=== PATIENT | male | born 1980 | race Caucasian/White ===

== ENCOUNTER 2024-02-04 07:59 | Outpatient (AMB) | payer BC, SELFPAY ==
[2024-02-04 08:04] VITALS: BP 120/82; PULSE 78; O2SAT 99; BMI 27.0
--- NOTE | 2024-02-04 08:04 | MHC.OFFVIS ---
Vital Signs 02/04/24 08:04 Height 5 ft 5 in Weight 162 lb BMI 27.0 BP 120/82 Blood Pressure Location Rt brachial Position Sitting Pulse 78 Pulse Source Pulse Oximeter Pulse Oximetry (%) 99 Intake Visit Reasons: ENP-Persistant headache-CONF Intake Note: Patient presents for bump on head. Allergies No Known Allergies Allergy (Verified 02/04/24 08:06) Medication List - Last Reconciled 02/04/24 by HARPREET Rodriguez No Known Home Meds HPI Comments Details: Right-handed 43-yr-old male presents for new pt evaluation of headache. PMH includes GERD. Pt reports last Jan 2023, he struck the top of his head on a branch when he stood up from a squatting position under a branch. He did not have LOC. He did develop a couple of contusions on the top of his head. He states most of the contusions self-resolved but there is still an area that feels like a lump to him. Initially the area was painful. More recently tmay occasionally have episodes of feeling pressure in the area described as mild just in the background and some brief stabbing pains- not overly bothersome. He had US of the area in Mar 3103/2023- which was normal. Brain MRI w/o, 05/2023 was unremarkable, however pt is concerned that he saw the MRI images after he had the MRI, and believed he saw a convex indentation along the top of his head. He denies vision changes, dizziness, cognitive difficulties. Denies previous head injury. Current acute medication use/interventions: Rarely Tylenol or Ibuprofen Current preventative medication use: None Non-pharmacological interventions: none PFSH Medical History (Updated 02/04/24 @ 21:31 by HARPREET Rodriguez) GERD (gastroesophageal reflux disease) Surgical History (Updated 02/04/24 @ 08:09 by ANA CRISTINA Gutierrez) Hx of appendectomy Family History (Updated 02/04/24 @ 08:12 by ANA CRISTINA Gutierrez) Mother HTN (hypertension) Social History (Updated 02/04/24 @ 08:09 by ANA CRISTINA Gutierrez) Alcohol intake: never Patient Tobacco Use Status: Never used Tobacco Physical Exam Vital Signs: Last Vital Signs Pulse 78 02/04/24 08:04 BP 120/82 02/04/24 08:04 Pulse Ox 99 02/04/24 08:04 BMI result Body Mass Index 27.0 Const Orientation/consciousness: patient oriented x3 Resp Effort & Inspection: normal respiratory effort and able to speak in complete sentences Neuro Other: No palpable scalp tenderness. No palpabable masses General: patient oriented x3 Cranial nerves: Yes CN's II-XII intact bilaterally Cognition (Neuro): normal cognition Gait exam (Neuro): Normal gait present Motor exam (neuro): 5/5 motor strength present throughout Deep tendon reflexes (DTR's): Right triceps reflex intensity grade: 2+, Left triceps reflex intensity grade: 2+, Rt Biceps (C5, C6): 2+, Left biceps reflex intensity grade: 2+, Right brachioradialis reflex intensity grade: 2+, Left brachioradialis reflex intensity grade: 2+, Right patellar reflex intensity grade: 2+ and Left patellar reflex intensity grade: 2+ Coordination: [id number] test normal Pupils: Normal pupillary reactivity/response: bilateral Psych Appearance: grossly normal Mental Status: mental status grossly normal Speech and movement: Normal speech and movement present Affect: normal affect Attitude: cooperative Thought process: Normal thought process present Assessment & Plan Assessment & Plan (1) Headache: Comment: crown of head pressure/stabbing pains w/o other associated s/s- s/p Jan 2023 head strike w/o LOC. Improving. Code(s): R51.9 - Headache, unspecified Category: Medical Plan Reviewed brain MRI report and images w/ pt- no evidence of extracranial growth/mass. Occipital region does appear slightly flattened on MRI and exam. Suspect that pt may be noticing his baseline cranium contour since the Jan 2023 head strike. Neuro exam is WNL. Offered head CT to better assess the calvarium. Pt states he will consider. Headache has improved- may use OTC Tylenol or Ibuprofen prn. f/u in 6 months or sooner prn. Coding Level of Care Code New Pt Level 4 (36713) Diagnoses Headache R51.9
== END 2024-02-04 09:15 | disposition home or self-care (01) ==
PROVIDERS: PCP Internal Medicine; Visit Provider Nurse Practitioner Family
DX: R51.9 Headache, unspecified (principal)
CPT/HCPCS: 99204

== ENCOUNTER → 2024-02-04 07:59 | Outpatient (BNVA) | payer BC, SELFPAY | PROVIDERS: PCP Internal Medicine; Visit Provider Nurse Practitioner Family ==

== ENCOUNTER 2024-08-18 15:25 | Outpatient (AMB) | payer BC, SELFPAY ==
[2024-08-18 15:27] VITALS: BP 130/80; PULSE 75; O2SAT 99; BMI 27.1
--- NOTE | 2024-08-18 15:27 | MHC.OFFVIS ---
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 Headaches, worsening with poor sleep, affect the top of his head. Previous MRI scans showed no significant findings, however patient is concerned about his head shape- flattened occipital region and prominent vertex- prompting his request for a follow-up CT scan. Ibuprofen alleviates his headaches more than acetaminophen. Headache review: - Headaches are generally located at the top of the head and worsen with poor sleep. - He notices an association between severe headaches and insufficient sleep. - Consumes no caffeine routinely. - Headaches improve with ibuprofen more than acetaminophen. - No focal neurological symptoms reported in association with headaches. He notes ongoing sleep disturbances, which include difficulty falling asleep, nocturnal awakenings to urinate, and heightened anxiety. He maintains about 7 hours of sleep but reports morning fogginess. He discontinued melatonin due to morning grogginess. Sleep Review - Typically retires between 9:30 and 10:00 PM. - Reports difficulty in sleep onset due to an active evening routine. 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 - Sleep totaled approximately 7 hours, with foggy arousal noted. - uses white noise- he wonders about this. - Rarely consumes caffeine from tea, reserved for weekends. Review of Systems - Constitutional: Denies recent illness. - Neurological: Denies snoring; however, indicates mild snoring and has headaches. - Genitourinary: Reports nocturia once a night. - Sleep: Reports difficulty falling asleep, nocturnal anxiety, and interrupted sleep pattern. 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 - At home, performs sets of pull-ups in two sets. Food The patient maintains access to nutritious food and practices a diet with no added sugars. He prepares homemade yogurt with specific bacteria for gastrointestinal and potential sleep benefits, enjoyed by his family. 02/04/2024 initial HPI: Pt reports last Jan 2023, he struck the top of his head on a branch when he stood up from a squatting position under a branch. He did not have LOC. He did develop a couple of contusions on the top of his head. He states most of the contusions self-resolved but there is still an area that feels like a lump to him. Initially the area was painful. More recently may occasionally have episodes of feeling pressure in the area described as mild just in the background and some brief stabbing pains- not overly bothersome. He had US of the area in Mar 3103/2023- which was normal. Brain MRI w/o, 05/2023 was unremarkable, however pt is concerned that he saw the MRI images after he had the MRI, and believed he saw a convex indentation along the top of his head. He denies vision changes, dizziness, cognitive difficulties. Denies previous head injury. Current acute medication use/interventions: Rarely Tylenol or Ibuprofen Current preventative medication use: None Non-pharmacological interventions: none PMH: GERD PFSH Medical History (Updated 09/04/24 @ 10:10 by HARPREET Rodriguez) GERD (gastroesophageal reflux disease) Surgical History Hx of appendectomy Family History Mother HTN (hypertension) Social History Alcohol intake: never Patient Tobacco Use Status: Never used Tobacco Physical Exam Vital Signs: Last Vital Signs Pulse 75 08/18/24 15:27 BP 130/80 08/18/24 15:27 Pulse Ox 99 08/18/24 15:27 Oxygen Delivery Method Room Air 08/18/24 15:27 BMI result Body Mass Index 27.1 Const Orientation/consciousness: patient oriented x3 HEENT Other: brachycephaly Resp Effort & Inspection: normal respiratory effort and able to speak in complete sentences Neuro Other: No palpable scalp tenderness. No palpabable masses General: patient oriented x3 Cranial nerves: Yes CN's II-XII intact bilaterally Cognition (Neuro): normal cognition Gait exam (Neuro): Normal gait present Motor exam (neuro): 5/5 motor strength present throughout Deep tendon reflexes (DTR's): Right triceps reflex intensity grade: 2+, Left triceps reflex intensity grade: 2+, Rt Biceps (C5, C6): 2+, Left biceps reflex intensity grade: 2+, Right brachioradialis reflex intensity grade: 2+, Left brachioradialis reflex intensity grade: 2+, Right patellar reflex intensity grade: 2+ and Left patellar reflex intensity grade: 2+ Coordination: [id number] test normal Pupils: Normal pupillary reactivity/response: bilateral Psych Appearance: grossly normal Mental Status: mental status grossly normal Speech and movement: Normal speech and movement present Affect: normal affect Attitude: cooperative Thought process: Normal thought process present Assessment & Plan Assessment & Plan (1) Headache: Comment: crown of head pressure/stabbing pains w/o other associated s/s- s/p Jan 2023 head strike w/o LOC. Improving. 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 I recommended a CT scan for further evaluation of the lump he feels on his head which is likely related to a flattened posterior skull shape of which etiology is unknown and thus to assess for secondary versus congenital or infantile acquired skull deformity- will compare with previous MRI results. We reviewed the ibuprofen regimen for headache management. The benefits of homemade yogurt and mild exercise were acknowledged. We agreed on the approach without pharmacologic sleep aids and provided resources on sleep hygiene. We will follow up on diagnostic imaging results. Patient was informed and verbally consented to the use of an ambient scribe for clinic note documentation during this visit. Patient Instructions - Follow the provided sleep hygiene recommendations. - Schedule the CT scan as discussed. - Use ibuprofen for headache management, following dosing guidance provided. - Implement gradual changes to evening activities to optimize rest. Coding Level of Care Code Est Pt Level 4 (63741) Diagnoses Headache R51.9 Deformity of skull M95.2 Sleep difficulties G47.9
--- OUTSIDE RECORDS SUMMARY | 2024-08-18 18:45 | XMS_ITS | Clinical Summary ---
Author Organization [facility] it Address [address] [place] [address] Care Team Providers Care Double Back Operator Name Role Phone Aliyah Leach MD Primary Care Provider Medications multivitamin (MULTIPLE VITAMINS ORAL) Take by mouth. Active OMEPRAZOLE ORAL Take by mouth. Active Active Problems Problem Noted Date Diagnosed Date Dry skin 12/23/2023 Elevated LDL cholesterol level 12/23/2023 Erythrocytosis 12/23/2023 Heartburn 10/22/2011 Tinea pedis 10/22/2011 Surgical History Surgery Date Site/Laterality Comments APPENDECTOMY 1993 PROCEDURE:APPENDECTOMY Medical History Medical History Date Comments GERD (gastroesophageal reflux disease) DX:GERD (gastroesophageal reflux disease) Family History Medical History Relation Name Comments Cancer Mother's Brother Cancer Mother's Sister Relation Name Status Comments Mother's Brother Mother's Sister Social History Tobacco Use Types Packs/Day Years Used Date Smoking Tobacco: Never Smokeless Tobacco: Never Alcohol Use Standard Drinks/Week Comments Not Currently 0 (1 standard drink = 0.6 oz pur e alcohol) Sex and Gender Information Value Date Recorded Sex Assigned at Not on file Legal Sex Male 12:52 PM EST Gender Identity Not on file Sexual Orientation Not on file Obstetrics History Last Filed Vital Signs Vital Sign Reading Time Taken Comments Blood Pressure 131/70 03/02/2024 1:19 PM EDT Sit ting Left arm Pulse 72 03/02/2024 1:19 PM EDT Temperature - - Respiratory Rate - - Oxygen Saturation - - Inhaled Oxygen Concentration - - Weight 73 kg (161 lb) 03/02/2024 1:19 PM EDT Height 165.1 cm (5' 5 ) 02/10/2024 3:05 PM EDT Body Mass Index 26.79 02/10/2024 3:05 PM EDT Plan of Treatment Upcoming Encounters Date Type Department Care Team (Late st Contact Info) Description 09/02/2024 8:00 AM EDT Office Visit Adult Medicine [facility] [address] [place] [address] Aliyah Leach MD [address] [place] [address] Health Maintenance Due Date Last Done Comments DTaP,Tdap,and Td Vaccines (1 - Tdap) 2001 Hepatitis B Vaccines (1 of 3 - 19+ 3-dose series) 2001 Depression Screening 05/20/2022 HIV Screening 05/20/2022 Hepatitis C Screening 05/20/2022 Social Influencers of Health Screening 05/20/2022 COVID-19 Vaccine ( - 2023-2 5 season) 2024 Influenza Vaccine (#1) 2024 Cholesterol Screening (Lipid Panel) 12/22/2028 12/23/2023 HIB Vaccines Aged Out No longer eligi ble based on patient's age to complete this topic HPV Vaccines Aged Out No longer eligi ble based on patient's age to complete this topic Hepatitis A Vaccines Aged Out No long er eligible based on patient's age to complete this topic IPV Vaccines Aged Out No longer eligi ble based on patient's age to complete this topic MMR Vaccines Aged Out No longer eligi ble based on patient's age to complete this topic Meningococcal ACWY Vaccine Aged Out N o longer eligible based on patient's age to complete this topic Meningococcal B Vacine Aged Out No lo nger eligible based on patient's age to complete this topic Pneumococcal Vaccine: Pediat rics (0 to 5 Years) and At-Risk Patients (6 to 64 Years) Aged Out No longer eligi ble based on patient's age to complete this topic RSV Immunization Patients Un carlos eduardo 20 months Aged Out No longer eligible b ased on patient's age to complete this topic Varicella Vaccines Aged Out No longer eligible based on patient's age to complete this topic Care Teams Double Back Operator Relationship Specialty Start Date End Date Aliyah Leach MD [address] [place] [address] [facility] - General 08/14/22
--- OUTSIDE RECORDS SUMMARY | 2024-08-18 18:45 | XMS_ITS | Clinical Summary ---
Author Organization [facility] Address [address] [place] [id number] Care Team Providers Care Inspector Final Assembly Mechanical Name Role Phone Aliyah Leach MD Primary Care Provider [phone] Allergies No known active allergies Medications No known medications Active Problems No known active problems Family History Medical History Relation Name Comments Cancer Maternal Aunt Cancer Maternal Uncle Relation Name Status Comments Maternal Aunt Maternal Uncle Social History Tobacco Use Types Packs/Day Years Used Date Smoking Tobacco: Never Smokeless Tobacco: Never Tobacco Cessation:Counseling Given: Not Answered Alcohol Use Standard Drinks/Week Comments Not Currently 0 (1 standard drink = 0.6 oz pur e alcohol) Sex and Gender Information Value Date Recorded Sex Assigned at Male 01/07/2024 9:18 AM EDT Gender Identity Not on file Sexual Orientation Not on file Job Start Date Occupation Industry Not on file Not on file Not on file Last Filed Vital Signs Vital Sign Reading Time Taken Comments Blood Pressure 131/70 03/02/2024 1:19 PM EDT Pulse 72 03/02/2024 1:19 PM EDT Temperature 37.3 ??C (99.2 ??F) 03/02/2024 1:19 PM ED T Respiratory Rate - - Oxygen Saturation 100% 03/02/2024 1:19 PM EDT Inhaled Oxygen Concentration - - Weight 73 kg (161 lb) 03/02/2024 1:19 PM EDT Height 165.1 cm (5' 5 ) 02/10/2024 3:05 PM EDT Body Mass Index 26.79 02/10/2024 3:05 PM EDT Plan of Treatment Health Maintenance Due Date Last Done Comments Hepatitis B Vaccines (1 of 3 - 3-dose series) 1982 Hepatitis C Screening 1982 COVID-19 Vaccine (#1) 1982 Depression Screening 1994 Preventative Health Evaluation 2000 DTap / Tdap / Td (1 - Tdap) 2001 Influenza Vaccine (#1) 2024 Pneumococcal Vaccine Aged Out No long er eligible based on patient's age to complete this topic RSV Ped < 20 months Aged Out No longe r eligible based on patient's age to complete this topic Care Teams Inspector Final Assembly Mechanical Relationship Specialty Start Date End Date Aliyah Leach MD [address] [place] [address] PCP - General Internal Medicine 01/07/24
== END 2024-08-18 16:06 | disposition home or self-care (01) ==
LOC: HO.HSMS 15:25
PROVIDERS: PCP Internal Medicine; Visit Provider Nurse Practitioner Family
DX: R51.9 Headache, unspecified (principal); M95.2 Other acquired deformity of head; G47.9 Sleep disorder, unspecified
CPT/HCPCS: 99214